=== PATIENT | male | born 1960 | race Hispanic/Latino ===

== ENCOUNTER 2019-05-07 20:40 | Inpatient (IN) | payer OTHER ==
[~2019-05-07] VITALS: Ht 167.6 cm; Wt 98.4 kg
[2019-05-07] MEDS ORDERED: MORPHINE SULFATE 4 MG/1ML SYG ONE ×2 (20:55→23:34)
[2019-05-07] MEDS ORDERED: ONDANSETRON HCL 4 MG/2 ML VIAL ONE (23:26)
[2019-05-07] MEDS: LACTATED RINGERS 1000ML 1,000 ML IV SCH (23:30)
[2019-05-07 23:41] LABS: BASOPHILS % (AUTO) 0.2 % (0.0-5.0); EOSINOPHILS % (AUTO) 0.5 % (0.0-8.0); HEMATOCRIT 32.8 % (42-54); LYMPHOCYTES % (AUTO) 8.9 % (21.0-51.0); MEAN CORPUSCULAR HGB CONC 33.1 g/dL (32.0-36.0); MEAN CORPUSCULAR VOLUME 87.7 fL (79-99); MONOCYTES % (AUTO) 5.1 % (3.0-13.0); NEUTROPHILS % (AUTO) 85.3 % (40.0-77.0); NUCLEATED RED BLOOD CELLS 0.1 % (0.0-0.19); PLATELET COUNT (AUTO) 200 K/uL (130-400); RED BLOOD CELL COUNT(AUTO) 3.74 MIL/uL (4.50-6.20); RED CELL DISTRIBUTION WIDTH 14.1 % (11.0-15.5); WHITE BLOOD COUNT (AUTO) 14.4 K/uL (4.8-10.8)
[2019-05-07 23:51] LABS: CREATININE 1.8 mg/dL (0.5-1.5); POTASSIUM 4.8 mmol/L (3.5-5.1)
[2019-05-07 23:53] LABS: INR 0.96 (0.85-1.15); PARTIAL THROMBOPLASTIN TIME 22.3 SEC (26.3-35.5); PROTHROMBIN TIME 9.9 SEC (9.6-11.6)
[2019-05-07 23:56] LABS: ALBUMIN 3.7 g/dL (3.5-5.0); BILIRUBIN,TOTAL 0.2 mg/dL (0.2-1.0); TOTAL PROTEIN, SERUM 7.1 g/dL (6.0-8.3)
[2019-05-08] VITALS (24 sets, daily range): BP systolic 135–195; BP diastolic 68–86
[2019-05-08 00:28] LABS: APPEARANCE,URINE Clear (CLEAR); BILIRUBIN,URINE Negative (NEGATIVE); COLOR,URINE Yellow (YELLOW); GLUCOSE, URINE (UA) TRACE mg/dL (NEGATIVE); KETONES,URINE Trace mg/dL (NEGATIVE); LEUKOCYTE ESTERASE ,URINE Negative (NEGATIVE); NITRATE,URINE Negative (NEGATIVE); OCCULT BLOOD,URINE Negative (NEGATIVE); PROTEIN,URINE POS 2+ mg/dL (NEGATIVE); UROBILINOGEN,URINE 0.2 mg/dL (0.2-1.0)
[2019-05-08 00:42] LABS: BACTERIA,URINE Few /HPF (None Seen); MUCUS,URINE Few LPF (None Seen); RBC,URINE 0-1 /HPF (0-1); SQUAMOUS EPITHELIAL CELL,UR 0-2 /HPF (0-2)
[2019-05-08] MEDS ORDERED: AEC81 PO (01:01)
[2019-05-08] MEDS ORDERED: METF-444 PO ×2 (01:01)
[2019-05-08] MEDS ORDERED: AMLO10TA7 PO (01:01)
[2019-05-08] MEDS ORDERED: TERB250T51 PO (01:01)
[2019-05-08] MEDS ORDERED: MULT-1289 PO (01:01)
[2019-05-08] MEDS ORDERED: CARV6.25 PO (01:01)
[2019-05-08] MEDS ORDERED: INSLAN SQ (01:01)
[2019-05-08] MEDS ORDERED: LOSA100T58 PO (01:01)
[2019-05-08] MEDS ORDERED: LIRA0.6P SQ (01:01)
[2019-05-08] MEDS ORDERED: PRAV40TA3 PO (01:01)
[2019-05-08] MEDS ORDERED: MORPHINE SULFATE 4 MG/1ML SYG ONE (01:07)
[2019-05-08] MEDS ORDERED: LACTATED RINGERS 1000ML 1,000 ML IV ONE (01:07)
[2019-05-08] MEDS: MORPHINE SULFATE 4 MG/1ML SYG IV PRN ×3 (04:14→16:13)
[2019-05-08] MEDS: HYDRALAZINE HCL 20 MG/ML VIAL IV PRN ×2 (04:14→16:14)
[2019-05-08] MEDS: INSULIN HUMULIN R 100 UNIT/ML 3ML SQ SCH ×5 (06:12→21:01)
[2019-05-08] MEDS: FAMOTIDINE/PF 20 MG/2 ML VIAL IV SCH (09:22)
--- NOTE | 2019-05-08 10:00 | NUR ---
DCP CM met with pt discussed dc plans. Pt is independent prior to admission, lives at home w/daughter. Denies any equipments/services. Feels safe to go back home, daughter able to assist with transportation and needs as necessary. DC plan to home once stable. CM to cont to follow up. Addendum: 05/08/19 at 1458 by RITCHIE VERAS LVN CM Amended: Links added.
[2019-05-08] MEDS: METFORMIN HCL 500 MG TABLET PO SCH ×2 (10:26→21:00)
[2019-05-08 10:41] LABS: BASOPHILS % (AUTO) 0.2 % (0.0-5.0); EOSINOPHILS % (AUTO) 0.2 % (0.0-8.0); HEMATOCRIT 31.4 % (42-54); LYMPHOCYTES % (AUTO) 10.8 % (21.0-51.0); MEAN CORPUSCULAR HEMOGLOBIN 29.1 pg (27.0-33.0); MEAN CORPUSCULAR VOLUME 88.4 fL (79-99); NEUTROPHILS % (AUTO) 79.8 % (40.0-77.0); PLATELET COUNT (AUTO) 171 K/uL (130-400); RED BLOOD CELL COUNT(AUTO) 3.55 MIL/uL (4.50-6.20); RED CELL DISTRIBUTION WIDTH 13.8 % (11.0-15.5); WHITE BLOOD COUNT (AUTO) 11.1 K/uL (4.8-10.8)
[2019-05-08 10:43] LABS: HEMOGLOBIN A1C 7.4 % (4.0-6.0)
[2019-05-08 10:45] LABS: CREATININE 1.5 mg/dL (0.5-1.5); POTASSIUM 4.6 mmol/L (3.5-5.1)
[2019-05-08 10:48] LABS: ALBUMIN 3.6 g/dL (3.5-5.0); BILIRUBIN,TOTAL 0.3 mg/dL (0.2-1.0); TOTAL PROTEIN, SERUM 7.1 g/dL (6.0-8.3)
[2019-05-08] MEDS ORDERED: CARVEDILOL 6.25 MG TABLET PO ONE (11:59)
[2019-05-08] MEDS: CEFTRIAXONE SODIUM 1 GM IVP SCH (12:04)
[2019-05-08] MEDS ORDERED: LIDOCAINE HCL MPF 1% 5ML VIAL ONE (12:23)
[2019-05-08] MEDS ORDERED: PROPOFOL 10 MG/ML 20ML VIAL IV ONE (12:23)
[2019-05-08] MEDS ORDERED: ROCURONIUM 10MG/1ML SYR 10 MG/ML ML ONE (12:23)
[2019-05-08] MEDS ORDERED: FENTANYL CITRATE PF 50 MCG/1 ML 2ML VIAL ONE (12:23)
[2019-05-08] MEDS ORDERED: ROPIVACAINE 0.5% 5MG/ML 30ML IJ ONE ×2 (12:23→12:56)
[2019-05-08] MEDS ORDERED: MIDAZOLAM HCL 1 MG/ML 2ML VIAL ONE (12:23)
[2019-05-08] MEDS ORDERED: SODIUM CHLORIDE 0.9% 1000ML 1,000 ML IV ONE (12:45)
[2019-05-08] MEDS: LACTATED RINGERS 1000ML 1,000 ML IV SCH (12:50)
[2019-05-08] MEDS ORDERED: CEFAZOLIN SODIUM 1 GM VIAL ONE (13:36)
[2019-05-08] MEDS ORDERED: ONDANSETRON HCL 4 MG/2 ML VIAL ONE (14:06)
[2019-05-08] MEDS ORDERED: DEXAMETHASONE SOD PHOSPHATE 10MG/ML 1ML VIAL ONE (14:06)
[2019-05-08] MEDS ORDERED: HYDROCODONE/ACETAMINOPHEN 5/325 MG TAB PO PRN (14:15)
[2019-05-08] MEDS ORDERED: MEPERIDINE-PF 25 MG/ML SYG ONE ×2 (14:26→14:34)
--- NOTE | 2019-05-08 15:18 | NUR ---
RD NOTIFICATION DIET: NPO; PENDING PROCEDURE. PO INTAKE 100% AND HAS GOOD APPETITE PRIOR TO ADMISSION ACCORDING TO PT AND FAMILY. PT AND DAUGHTERS COOK MEALS AT HOME, PT TAKES MEDICATIONS AND CHECKS HIS BG LEVELS REGULARLY. RD PROVIDED DIET AND NUTRITION EDUCATION REGARDING HIS DIABETES. PT AND FAMILY ASKED QUESTIONS, RD ANSWERED AND PT VERBALIZED UNDERSTANDING. EDUCATION MATERIALS WERE PROVIDED. RD RECOMMENDS ADVANCE DIET TOLERATED TO [address] RD PROVIDED DIABETES DIET AND NUTRITION EDUCATION RD WILL FOLLOW UP NEEDED, THANK YOU. Addendum: 05/08/19 at [address] Amended: Links added.
--- NOTE | 2019-05-08 15:21 | NUR ---
NUTRITION EDUCATION PT AND DAUGHTERS COOK MEALS AT HOME, PT TAKES MEDICATIONS AND CHECKS HIS BG LEVELS REGULARLY. RD PROVIDED DIET AND NUTRITION EDUCATION REGARDING HIS DIABETES. PT AND FAMILY ASKED QUESTIONS, RD ANSWERED AND PT VERBALIZED UNDERSTANDING. EDUCATION MATERIALS WERE PROVIDED. Addendum: 05/08/19 at [address] Amended: Links added.
[2019-05-08] MEDS: SODIUM CHLORIDE 0.9% 1000ML 1,000 ML IV SCH (15:28)
[2019-05-08] MEDS: CARVEDILOL 6.25 MG TABLET PO SCH (15:29)
[2019-05-08] MEDS: SIMVASTATIN 20 MG TABLET PO SCH (20:59)
[2019-05-08] MEDS: HYDROCODONE/ACETAMINOPHEN 5/325 MG TAB PO PRN (21:00)
[2019-05-09] VITALS: BP 163/90
[2019-05-09] MEDS: SODIUM CHLORIDE 0.9% 1000ML 1,000 ML IV SCH ×2 (00:03→10:03)
[2019-05-09 03:57] VITALS: BP 138/78
[2019-05-09 04:21] LABS: BASOPHILS % (AUTO) 0.1 % (0.0-5.0); HEMATOCRIT 32.4 % (42-54); LYMPHOCYTES % (AUTO) 6.1 % (21.0-51.0); MEAN CORPUSCULAR HEMOGLOBIN 29.5 pg (27.0-33.0); MEAN CORPUSCULAR HGB CONC 32.8 g/dL (32.0-36.0); MEAN CORPUSCULAR VOLUME 89.9 fL (79-99); MONOCYTES % (AUTO) 7.1 % (3.0-13.0); NEUTROPHILS % (AUTO) 86.7 % (40.0-77.0); PLATELET COUNT (AUTO) 158 K/uL (130-400); RED BLOOD CELL COUNT(AUTO) 3.61 MIL/uL (4.50-6.20); RED CELL DISTRIBUTION WIDTH 14.2 % (11.0-15.5); WHITE BLOOD COUNT (AUTO) 14.2 K/uL (4.8-10.8)
[2019-05-09 04:33] LABS: CREATININE 1.5 mg/dL (0.5-1.5); POTASSIUM 4.5 mmol/L (3.5-5.1)
[2019-05-09] MEDS: CARVEDILOL 6.25 MG TABLET PO SCH ×2 (06:22→15:23)
[2019-05-09] MEDS: METFORMIN HCL 500 MG TABLET PO SCH ×2 (06:22→21:50)
[2019-05-09] MEDS: INSULIN HUMULIN R 100 UNIT/ML 3ML SQ SCH ×4 (06:23→21:57)
[2019-05-09 08:00] VITALS: BP 149/77
[2019-05-09] MEDS: MULTIVITAMIN WITH MINERALS TABLET PO SCH (08:21)
[2019-05-09] MEDS: FAMOTIDINE/PF 20 MG/2 ML VIAL IV SCH (08:21)
[2019-05-09] MEDS: HYDROCODONE/ACETAMINOPHEN 5/325 MG TAB PO PRN ×3 (08:21→21:50)
[2019-05-09] MEDS: LOSARTAN 100 MG TABLET PO SCH (08:22)
[2019-05-09] MEDS: POLYETHYLENE GLYCOL 3350 17 GM POWD.PACK PO SCH (08:22)
[2019-05-09] MEDS: ASPIRIN 81 MG EC TAB PO SCH (08:22)
[2019-05-09] MEDS: AMLODIPINE BESYLATE 5 MG TAB PO SCH (08:22)
[2019-05-09] MEDS: ENOXAPARIN SODIUM 40 MG/0.4 ML SYRINGE SQ SCH (08:23)
[2019-05-09] MEDS: INSULIN GLARGINE 100 UNITS/ML 10 ML VIAL SQ SCH (08:36)
[2019-05-09] MEDS: LIRAGLUTIDE 1.8 MG SQ SCH (09:00)
[2019-05-09 11:26] VITALS: BP 143/71
[2019-05-09] MEDS: CEFTRIAXONE SODIUM 1 GM IVP SCH (12:57)
[2019-05-09] MEDS: PSYLLIUM SEED 1 EACH PACKET PO SCH (13:09)
[2019-05-09 16:00] VITALS: BP 169/77
[2019-05-09 19:22] VITALS: BP 141/72
[2019-05-09] MEDS: SIMVASTATIN 20 MG TABLET PO SCH (21:50)
[2019-05-10] VITALS: BP 156/84
[2019-05-10 04:00] VITALS: BP 148/85
[2019-05-10] MEDS: METFORMIN HCL 500 MG TABLET PO SCH (05:29)
[2019-05-10] MEDS: HYDROCODONE/ACETAMINOPHEN 5/325 MG TAB PO PRN ×2 (05:29→09:19)
[2019-05-10] MEDS: CARVEDILOL 6.25 MG TABLET PO SCH ×2 (05:30→08:48)
[2019-05-10] MEDS: INSULIN HUMULIN R 100 UNIT/ML 3ML SQ SCH ×2 (05:31→12:07)
[2019-05-10 05:36] LABS: BASOPHILS % (AUTO) 0.2 % (0.0-5.0); EOSINOPHILS % (AUTO) 1.2 % (0.0-8.0); HEMATOCRIT 29.6 % (42-54); LYMPHOCYTES % (AUTO) 17.2 % (21.0-51.0); MEAN CORPUSCULAR HEMOGLOBIN 29.6 pg (27.0-33.0); MEAN CORPUSCULAR HGB CONC 33.7 g/dL (32.0-36.0); MEAN CORPUSCULAR VOLUME 87.8 fL (79-99); MONOCYTES % (AUTO) 10.9 % (3.0-13.0); NEUTROPHILS % (AUTO) 70.5 % (40.0-77.0); PLATELET COUNT (AUTO) 174 K/uL (130-400); RED BLOOD CELL COUNT(AUTO) 3.37 MIL/uL (4.50-6.20); RED CELL DISTRIBUTION WIDTH 14.2 % (11.0-15.5); WHITE BLOOD COUNT (AUTO) 11.3 K/uL (4.8-10.8)
[2019-05-10 06:04] LABS: CREATININE 1.6 mg/dL (0.5-1.5); POTASSIUM 3.7 mmol/L (3.5-5.1)
[2019-05-10 06:07] LABS: INR 0.95 (0.85-1.15); PARTIAL THROMBOPLASTIN TIME 28.9 SEC (26.3-35.5)
[2019-05-10 07:51] VITALS: BP 139/77
[2019-05-10] MEDS: MULTIVITAMIN WITH MINERALS TABLET PO SCH (08:46)
[2019-05-10] MEDS: AMLODIPINE BESYLATE 5 MG TAB PO SCH (08:46)
[2019-05-10] MEDS: LOSARTAN 100 MG TABLET PO SCH (08:46)
[2019-05-10] MEDS: ASPIRIN 81 MG EC TAB PO SCH (08:46)
[2019-05-10] MEDS: POLYETHYLENE GLYCOL 3350 17 GM POWD.PACK PO SCH (08:48)
[2019-05-10] MEDS: FAMOTIDINE/PF 20 MG/2 ML VIAL IV SCH (08:49)
[2019-05-10] MEDS: ENOXAPARIN SODIUM 40 MG/0.4 ML SYRINGE SQ SCH (08:50)
[2019-05-10] MEDS: LIRAGLUTIDE 1.8 MG SQ SCH (09:00)
[2019-05-10] MEDS: INSULIN GLARGINE 100 UNITS/ML 10 ML VIAL SQ SCH (09:01)
[2019-05-10 11:22] VITALS: BP 156/86
[2019-05-10] MEDS: PSYLLIUM SEED 1 EACH PACKET PO SCH (11:58)
[2019-05-10] MEDS: CEFTRIAXONE SODIUM 1 GM IVP SCH (11:58)
[2019-05-10] MEDS ORDERED: CEPH500T PO ×2 (13:34→13:48)
[2019-05-10] MEDS ORDERED: BISACODYL 5 MG TABLET.DR PO PRN (14:15)
--- NOTE | 2019-05-10 14:35 | NUR ---
patient and family stated understanding of all d/c instructions in regards to patella fx; pt has knee immobilizer in place he is taking home and the family has bought a walker and bsc for at home; iv access removed; scripts given; family will call when they are ready to take pt.
[2019-05-11] MEDS ORDERED: BISACODYL 10 MG SUPP.RECT RC PRN (14:15)
== END 2019-05-10 14:56 | disposition home or self-care (01) | DRG 493 ==
LOC: EDH 20:40 → EDHIP 20:41 → 4AH 05-08 00:24
PROVIDERS: ADMIT Internal Medicine; ATTEND Internal Medicine
PROC: 0QSH04Z Reposition Left Tibia with Internal Fixation Device, Open Approach (ICD-10-PCS; principal; 2019-05-08 13:00)
DX: S82.142A Displaced bicondylar fracture of left tibia, initial encounter for closed fracture (principal); R65.10 Systemic inflammatory response syndrome (SIRS) of non-infectious origin without acute organ dysfunction; E66.9 Obesity, unspecified; Z68.35 Body mass index [BMI] 35.0-35.9, adult; E11.22 Type 2 diabetes mellitus with diabetic chronic kidney disease; E78.00 Pure hypercholesterolemia, unspecified; I12.9 Hypertensive chronic kidney disease with stage 1 through stage 4 chronic kidney disease, or unspecified chronic kidney disease; W01.0XXA Fall on same level from slipping, tripping and stumbling without subsequent striking against object, initial encounter; N18.2 Chronic kidney disease, stage 2 (mild); Y93.01 Activity, walking, marching and hiking; Z87.891 Personal history of nicotine dependence; Z90.49 Acquired absence of other specified parts of digestive tract; Z88.8 Allergy status to other drugs, medicaments and biological substances; Y92.89 Other specified places as the place of occurrence of the external cause; Y99.8 Other external cause status; Z93.0 Tracheostomy status
CPT/HCPCS: 36415; 71045; 73562; 73700; 80048; 80053; 81001; 82948; 83036; 83880; 85025; 85610; 85730; 86850; 86900; 86901; 93005; 97039; G0378; J0360; J0690; J0696; J1100; J1650; J1815; J2175; J2250; J2270; J2405; J2704; J2795; J3010; J3490; J7030; J7120

== ENCOUNTER 2023-03-19 11:43 | Emergency (ER) | payer OTHER ==
[~2023-03-19] VITALS: Ht 170.2 cm; Wt 81.6 kg
[~2023-03-19 11:43] MED LIST: AEC81 PO; AMLO-258 PO; CARV6.25 PO; CEPH500T PO; INSLAN SQ; LIRA0.6P SQ; LOSA100T59 PO; METF-444 PO; MULT-1289 PO; PRAV40TA3 PO; TERB250T89 PO
[2023-03-19] MEDS ORDERED: KETOROLAC 15MG/ML VIAL (15MG/ML) IV ONE (14:00)
[2023-03-19 14:30] LABS: BASOPHILS # (AUTO) 0.04 K/uL (0.00-0.20); BASOPHILS % (AUTO) 0.5 % (0.0-5.0); EOSINOPHILS # (AUTO) 0.15 K/uL (0.00-0.70); HEMATOCRIT 35.9 % (42-54); IMMATURE GRANULOCYTE ABSOLUTE 0.06 K/uL (0-1); LYMPHOCYTES # (AUTO) 1.6 K/uL (1.0-4.8); LYMPHOCYTES % (AUTO) 20.7 % (21.0-51.0); MEAN CORPUSCULAR HEMOGLOBIN 27.4 pg (27.0-33.0); MEAN CORPUSCULAR VOLUME 85.7 fL (79-99); MONOCYTES # (AUTO) 0.6 K/uL (0.1-1.0); MONOCYTES % (AUTO) 7.9 % (3.0-13.0); NEUTROPHILS # (AUTO) 5.1 K/uL (1.8-7.7); NEUTROPHILS % (AUTO) 68.1 % (40.0-77.0); PLATELET COUNT (AUTO) 280 K/uL (130-400); RED BLOOD CELL COUNT(AUTO) 4.19 MIL/uL (4.50-6.20); RED CELL DISTRIBUTION WIDTH 15.8 % (11.0-15.5); WHITE BLOOD COUNT (AUTO) 7.6 K/uL (4.8-10.8)
[2023-03-19 15:01] LABS: ALBUMIN 4.1 g/dL (3.5-5.0); BILIRUBIN,TOTAL 0.4 mg/dL (0.2-1.0); CREATININE 1.5 mg/dL (0.5-1.5); POTASSIUM 4.5 mmol/L (3.5-5.1)
[2023-03-19 15:51] LABS: APPEARANCE,URINE CLEAR (CLEAR); BILIRUBIN,URINE NEGATIVE (NEGATIVE); COLOR,URINE LIGHT-YELLOW (YELLOW); GLUCOSE, URINE (UA) >=1000 mg/dL (NEGATIVE); KETONES,URINE NEGATIVE (NEGATIVE); LEUKOCYTE ESTERASE ,URINE NEGATIVE Leu/uL (NEGATIVE); NITRATE,URINE NEGATIVE (NEGATIVE); OCCULT BLOOD,URINE NEGATIVE (NEGATIVE); PROTEIN,URINE NEGATIVE (NEGATIVE); UROBILINOGEN,URINE 0.2 mg/dL (0.2-1.0)
[2023-03-19 15:55] LABS: ADD UA MICROSCOPIC YES
[2023-03-19 18:00] VITALS: BP 144/74; PULSE 74; RESP 16; O2SAT 99
[2023-03-20 04:09] LABS: HEPATITIS A IGM ANTIBODY Non-Reactive (Nonreactive); HEPATITIS B CORE IGM ANTIBODY Non-Reactive (Negative); HEPATITIS B SURFACE ANTIGEN Non-Reactive (Nonreactive); HEPATITIS C ANTIBODY Non-Reactive (Nonreactive)
== END 2023-03-19 18:20 | disposition home or self-care (01) ==
LOC: EDH 11:43
DX: R10.10 Upper abdominal pain, unspecified (principal); K76.0 Fatty (change of) liver, not elsewhere classified; I10 Essential (primary) hypertension; E78.00 Pure hypercholesterolemia, unspecified; R74.8 Abnormal levels of other serum enzymes; E11.9 Type 2 diabetes mellitus without complications; Z90.49 Acquired absence of other specified parts of digestive tract; Z79.82 Long term (current) use of aspirin; Z79.84 Long term (current) use of oral hypoglycemic drugs; Z98.890 Other specified postprocedural states; Z88.8 Allergy status to other drugs, medicaments and biological substances
CPT/HCPCS: 99285; 74176; 96374; 76705; 71045; 80053; 82140; 83690; 85025; 80074; 81001; 36415; 93005; J1885